=== PATIENT | male | born 1960 | race Caucasian/White ===

== ENCOUNTER 2020-05-16 14:10 | Emergency (ER) | payer MEDICAID ==
[~2020-05-16] VITALS: Ht 157.5 cm; Wt 59.0 kg
[2020-05-16 14:18] VITALS: BP 90/57
--- NOTE | 2020-05-16 14:23 | NUR ---
PT W/C ASSISTED TO BED 5.
--- NOTE | 2020-05-16 15:03 | NUR ---
60 Y/O MALE BIB NIECE D/T UNWITENESSED FALL TODAY. PATIENT WAS FOUND LAYING FACE DOWN, MINIMALLY RESPONSIVE, AND LACERATION ON TONGUE. NO ACTIVE BLEEDING NOTED AT THIS TIME. LACERATIONS NOTED ON FOREHEAD. NO DEFORMITIES NOTED. GCS:12. PATIENT IS LETHARGIC, NIECE STATES THIS IS NOT NORMALLY PATIENTS BASELINE. PUPILS PINPOINT. PATIENT IS MINIMALLY RESPONSIVE. AAOX1 (SELF). RESP EVEN AND UNLABORED. PATIENT HAS RIGHT SIDED WEAKNESS D/T PREVIOUS STROKE.
[2020-05-16] MEDS ORDERED: LIDOCAINE/EPI 1% 1:100000 20 ML VIAL INJ ONE (15:13)
[2020-05-16] MEDS ORDERED: LIDOCAINE MPF 1% 5 ML ONE (15:15)
[2020-05-16 15:56] LABS: BASOPHILS % (AUTO) 0.6 % (0.0-2.0); EOSINOPHILS # (AUTO) 0.1 K/uL (0-0.4); EOSINOPHILS % (AUTO) 1.6 % (0.0-4.0); HEMATOCRIT 34.1 % (36-52); HEMOGLOBIN 11.3 g/dL (12.0-18.0); LYMPHOCYTES # (AUTO) 1.1 K/uL (2.0-11.5); LYMPHOCYTES % (AUTO) 17.1 % (20.5-51.1); MEAN CORPUSCULAR HEMOGLOBIN 29 pg (27-31); MEAN CORPUSCULAR HGB CONC 33 g/dL (33-37); MEAN CORPUSCULAR VOLUME 88.5 fL (80-94); MONOCYTES # (AUTO) 0.6 K/uL (0.8-1.0); MONOCYTES % (AUTO) 9.2 % (1.7-9.3); NEUTROPHILS # (AUTO) 4.8 K/uL (1.8-7.7); NEUTROPHILS % (AUTO) 71.5 % (42.2-75.2); PLATELET COUNT (AUTO) 215 K/uL (140-450); RED BLOOD CELL COUNT(AUTO) 3.85 MIL/uL (4.20-6.10); RED CELL DISTRIBUTION WIDTH 14.5 % (11.6-13.7); WHITE BLOOD COUNT (AUTO) 6.7 K/uL (4.8-10.8)
[2020-05-16] MEDS: NACL 0.9% 1,000 ML IV ONE (15:58)
[2020-05-16 16:09] LABS: PROTHROMBIN TIME 10.8 secs (10.8-13.4)
[2020-05-16 16:10] LABS: ANION GAP 9.5 (8-16); ASPARTATE AMINOTRANSFERASE 34 U/L (15-37); CARBON DIOXIDE 29.2 mmol/L (21-32); CHLORIDE 102 mmol/L (98-107); CREATININE 0.8 mg/dL (0.6-1.3); GFR ARICAN-AMERICAN 128 mL/min (>90); GLUCOSE 107 mg/dL (74-106); POTASSIUM 3.7 mmol/L (3.5-5.1); SODIUM SERUM 137 mmol/L (136-145); TOTAL BILIRUBIN 0.5 mg/dL (0.0-1.0); UREA NITROGEN, BLOOD 15 mg/dL (7-18)
--- NOTE | 2020-05-16 16:30 | NUR ---
JACOB SET UP AT BED SIDE, PA NOTIFIED
--- NOTE | 2020-05-16 16:33 | NUR ---
PT IS RESTING IN BED, RESPONSIVE TO VERBAL STIMULI, SPEECH SLURRED AND PT IS LETHARGIC.
--- NOTE | 2020-05-16 17:00 | NUR ---
ROAD TEST COMPLETED
[2020-05-16 17:26] LABS: BARBITURATE, URINE NEGATIVE ng/ml (NEG <=200); BENZODIAZEPINE, URINE POSITIVE ng/mL (NEG <=200); CANNABINOID, URINE NEGATIVE ng/mL (NEG <=50); COCAINE, URINE NEGATIVE ng/mL (NEG <=300); PHENCYCLIDINE SCREEN,URINE POSITIVE ng/mL (NEG <=25)
[2020-05-16 17:27] LABS: OPIATE, URINE POSITIVE ng/mL (NEG <=2000)
--- NOTE | 2020-05-16 17:27 | NUR ---
DR. BUCHANAN SPEAKING WITH PT AND ZENON AT BEDSIDE
[2020-05-16 17:35] VITALS: BP 110/69
--- NOTE | 2020-05-16 17:36 | NUR ---
Patient discharged with v/s stable. Written and verbal after care instructions given and explained. Patient alert, oriented and verbalized understanding of instructions. Ambulatory with steady gait. All questions addressed prior to discharge. ID band removed. Patient advised to follow up with PMD. Rx of CHLOROHEXIDINE, NAPROSYN given. Patient educated on indication of medication including possible reaction and side effects. Opportunity to ask questions provided and answered.
--- NOTE | 2020-05-18 12:59 | NUR ---
LATE ENTRY--CONFRIMED WITH RN END TIME OF NS IS [id number] 05/16/20
== END 2020-05-16 17:36 | disposition home or self-care (01) ==
LOC: MED 14:10
DX: S01.512A Laceration without foreign body of oral cavity, initial encounter (principal); R55 Syncope and collapse; F19.90 Other psychoactive substance use, unspecified, uncomplicated; R41.82 Altered mental status, unspecified; Z86.73 Personal history of transient ischemic attack (TIA), and cerebral infarction without residual deficits; Z98.890 Other specified postprocedural states; X58.XXXA Exposure to other specified factors, initial encounter; Y93.89 Activity, other specified; Y92.89 Other specified places as the place of occurrence of the external cause; Y99.8 Other external cause status
CPT/HCPCS: 36415; 41250; 70450; 71045; 72125; 80053; 80305; 84484; 85025; 85610; 85730; 93005; 96360; 99285; G0482; J2001; J7030; Q0092